=== PATIENT | male | born 1945 | race Caucasian/White ===

== ENCOUNTER 2019-05-17 13:00 | Outpatient (RCR) | payer MEDICARE, SELFPAY ==
[2019-05-10 11:04] VITALS: BMI 23.9
[2019-05-10 11:56] VITALS: BMI 23.9
== END 2019-08-08 23:59 | disposition home or self-care (01) ==
LOC: ANHDMC 13:00
PROVIDERS: Visit Provider Internal Medicine
DX: E11.9 Type 2 diabetes mellitus without complications (principal); Z71.3 Dietary counseling and surveillance; Z71.89 Other specified counseling
CPT/HCPCS: 97802; G0108